=== PATIENT | female | born 1980 ===

== ENCOUNTER 2022-05-16 09:34 | Outpatient (CLI) | payer OTHER | END 2022-05-16 12:12 | disposition home or self-care (01) | LOC: PRENATAL 09:34 | PROVIDERS: ATTEND Obstetrics & Gynecology Maternal & Fetal Medicine | DX: O36.80X0 Pregnancy with inconclusive fetal viability, not applicable or unspecified (principal); O24.419 Gestational diabetes mellitus in pregnancy, unspecified control; O09.529 Supervision of elderly multigravida, unspecified trimester; Z36.0 Encounter for antenatal screening for chromosomal anomalies; Z14.8 Genetic carrier of other disease; O34.10 Maternal care for benign tumor of corpus uteri, unspecified trimester; Z3A.14 14 weeks gestation of pregnancy ==

== ENCOUNTER 2022-08-20 10:43 | Outpatient (CLI) | payer OTHER ==
[~2022-08-20 10:43] MED LIST: HUMULIN N100 UNIT/2 SUBCUTANEO; HUMULIN R100 UNIT/1 SUBCUTANEO; INSULIN SYRING1 EA29 SUBCUTANEO
== END 2022-08-20 12:25 | disposition home or self-care (01) ==
LOC: PRENATAL 10:43
PROVIDERS: ATTEND Obstetrics & Gynecology Maternal & Fetal Medicine
DX: O26.849 Uterine size-date discrepancy, unspecified trimester (principal); O24.419 Gestational diabetes mellitus in pregnancy, unspecified control; O09.529 Supervision of elderly multigravida, unspecified trimester; Z3A.28 28 weeks gestation of pregnancy

== ENCOUNTER 2022-09-24 14:09 | Outpatient (CLI) | payer OTHER ==
[2022-09-24] MEDS ORDERED: HUMULIN N100 UNIT/2 SUBCUTANEO (14:53)
== END 2022-09-24 14:54 | disposition home or self-care (01) ==
LOC: PRENATAL 14:09
PROVIDERS: ATTEND Obstetrics & Gynecology Maternal & Fetal Medicine
DX: O26.849 Uterine size-date discrepancy, unspecified trimester (principal); O24.419 Gestational diabetes mellitus in pregnancy, unspecified control; O36.8199 Decreased fetal movements, unspecified trimester, other fetus; Z3A.33 33 weeks gestation of pregnancy

== ENCOUNTER 2022-10-21 15:34 | Outpatient (CLI) | payer OTHER ==
[2022-10-21] MEDS ORDERED: HUMULIN R100 UNIT/1 SUBCUTANEO (16:12)
== END 2022-10-21 16:20 | disposition home or self-care (01) ==
LOC: PRENATAL 15:34
PROVIDERS: ATTEND Obstetrics & Gynecology Maternal & Fetal Medicine
DX: O26.849 Uterine size-date discrepancy, unspecified trimester (principal); O24.419 Gestational diabetes mellitus in pregnancy, unspecified control; O36.8199 Decreased fetal movements, unspecified trimester, other fetus; O09.529 Supervision of elderly multigravida, unspecified trimester; Z3A.36 36 weeks gestation of pregnancy

== ENCOUNTER 2022-11-04 13:30 | Inpatient (IN) | payer OTHER ==
[~2022-11-04] VITALS: Ht 162.6 cm; Wt 3.6 kg
[2022-11-12] MEDS ORDERED: PRENATAL 19 TA1 EAC2 PO (09:14)
[2022-11-12] MEDS ORDERED: FOLIC ACID0.8 MG PO (09:15)
== END 2022-11-15 12:15 | disposition home or self-care (01) | DRG 785 ==
LOC: OB/GYN 11-12 07:29 → LDR 11-12 07:29 → OB/GYN 11-12 13:30 → O/R 11-12 18:35 → OB/GYN 11-12 20:30
PROVIDERS: ADMIT Obstetrics & Gynecology; ATTEND Obstetrics & Gynecology
PROC: 0UB70ZZ Excision of Bilateral Fallopian Tubes, Open Approach (ICD-10-PCS; 2022-11-12)
PROC: 4A1HXCZ Monitoring of Products of Conception, Cardiac Rate, External Approach (ICD-10-PCS; 2022-11-12)
PROC: 10D00Z1 Extraction of Products of Conception, Low, Open Approach (ICD-10-PCS; principal; 2022-11-12 18:30)
DX: O24.420 Gestational diabetes mellitus in childbirth, diet controlled (principal); O36.63X0 Maternal care for excessive fetal growth, third trimester, not applicable or unspecified; Z3A.40 40 weeks gestation of pregnancy; Z37.0 Single live birth; Z30.2 Encounter for sterilization; Z20.822 Contact with and (suspected) exposure to COVID-19